=== PATIENT | female | born 1945 | race Caucasian/White ===

== ENCOUNTER 2022-03-30 22:38 | Emergency (ER) | payer MEDICARE, SELFPAY ==
--- NOTE | ~2022-03-30 | XR_ITS ---
XR chest 1V portable DATE: 03/30/2022 23:10 INDICATION: Weakness for 2 to 3 days TECHNIQUE: Portable AP chest on March 30, 2022 at 2309 hours COMPARISON: None FINDINGS: There are diffuse patchy bilateral pulmonary infiltrates which may be due to pneumonia or p ulmonary edema. Pulmonary interstitial fibrotic change is not excluded. Borderline heart size. Aortic calcification and unfolding. There is minimal if any pleural effusion. No pneumothorax. Osteopenia. IMPRESSION: Diffuse patchy bilateral pulmonary infiltrates; consider pneumonia, pulmonary edema. Unde rlying pulmonary interstitial fibrotic change is not excluded. Reviewed, dictated and finalized at location A. [facility] IMPRESSION: Diffuse patchy bilateral pulmonary infiltrates; consider pneumonia, pulmonary edema. Underlying pulmonary interstitial fibrotic change is not excl uded.
[2022-03-30 22:37] VITALS: BP 130/55; PULSE 58; RESP 13; TEMP 36.6; O2SAT 99
--- NOTE | 2022-03-30 22:44 | ECG_ITS ---
Measurements Intervals [place] Rate: 55 P: 5 ME: 152 QRS: 30 QRSD: 78 T: 69 QT: 429 QTc: 411 Interpretive Statements SINUS BRADYCARDIA WITH SINUS ARRHYTHMIA NO PREVIOUS ECG AVAILABLE FOR COMPARISON Electronically Signed On 03-31-2022 16:17:19 [employer] by Chiki Kong M.D.
[2022-03-30 23:22] LABS: Basophils Percent Auto 0.5 % (0.2-1.2); Eosinophils Absolute Auto 0.2 K/mm3 (0-0.3); Eosinophils Percent Auto 3.7 % (0-4.4); Hematocrit 28.7 % (37.0-47.0); Hemoglobin 9.3 g/dL (12.0-15.0); Immature Granulocyte Absolute 0.06 K/mm3 (0.00-0.031); Lymphocytes Percent Auto 35.4 % (18.3-44.2); Mean Corpuscular HGB Conc 32.4 g/dl (32-36); Mean Corpuscular Volume 89.4 fl (80-100); Mean Platelet Volume 10.4 fl (7.4-10.4); Monocytes Absolute Auto 0.8 K/mm3 (0.1-0.6); Monocytes Percent Auto 12.1 % (2.6-8.5); Neutrophils Absolute Auto 2.9 K/mm3 (1.3-6.7); Neutrophils Percent Auto 47.3 % (45.5-73.1); Platelet Count Result 272 k/mm3 (150-375); Red Blood Count 3.21 M/mm3 (4.2-5.4); Red Cell Distribution Width 15.4 % (11.5-14.5); White Blood Count 6.2 K/mm3 (4.5-10.0)
[2022-03-30 23:30] LABS: Appearance Urine Clear (Clear); Bilirubin Urine Negative (Negative); Blood Urine Trace-lysed (Negative); Color Urine Light Yellow (Yellow); Glucose Urine UA Negative (Negative); Ketones Urine Negative (Negative); Leukocyte Esterase Ur 2+ LEU/UL (Negative); Nitrate Urine Positive (Negative); Protein Urine Negative (Negative); Urobilinogen Urine 0.2 mg/dL (<2.0); pH Urine 7.5 (5.0-9.0)
[2022-03-30 23:32] LABS: INR 1.3; Prothrombin Time 15.5 Seconds (11.1-14.7)
[2022-03-30 23:33] LABS: Alanine Aminotransferase 33 U/L (6-35); Alkaline Phosphatase 103 U/L (38-126); Anion Gap 2 mmol/L (8-16); Aspartate Amino Transferase 24 U/L (14-36); Bilirubin,Total 0.6 mg/dL (0.2-1.3); Blood Urea Nitrogen 21 mg/dL (7-17); Calcium 9.3 mg/dL (8.4-10.2); Carbon Dioxide 29 mmol/L (22-30); Chloride 99 mmol/L (98-107); Estimated CRCL calculation 29 ml/min; Estimated Glomerular Filt Rate 37; Glucose 100 mg/dL (65-110); Magnesium 1.7 mg/dL (1.6-2.3); Partial Thromboplastin Time 28.8 SECONDS (22.3-36.8); Potassium 4.3 mmol/L (3.4-5.0); Sodium 130 mmol/L (137-145)
[2022-03-30 23:34] LABS: Lactic Acid Reflex 0.7 mmol/L (0.7-2.0); RBC Urine 0-2 /hpf (0-2); WBC Urine >75 /hpf
[2022-03-30 23:36] LABS: Add Urine Microscopic? YES
[2022-03-30 23:45] LABS: Troponin I < 0.012 ng/mL (0.000-0.034)
[2022-03-30 23:57] LABS: Influenza A QL RT-PCR Negative (Negative); Influenza B QL RT-PCR Negative (Negative); SARS-CoV-2 RNA PCR Negative
[2022-03-31 00:02] LABS: Procalcitonin 0.1 ng/mL
--- NOTE | 2022-03-31 01:28 | ED.GENADULT ---
HPI - General Adult General Chief complaint: Altered Mental Status Stated complaint: AMS, LETHARGIC Time Seen by Provider: 03/30/22 22:52 History of Present Illness HPI narrative: Patient is a 76-year-old female who presents emerged from with chief complaint of decreased responsiveness. assisted and noticed the patient was less responsive than normal and the family was concerned that she may have a UTI. They report no fevers and report that on the way to the emergency department the patient was able to answer questions and acting her baseline. Review of Systems Review of Systems: A 10 system review of systems was completed on the patient and is negative except for what is stated in the HPI. Nursing and ancillary documentation was reviewed. Exam Narrative: GENERAL: Well-appearing, well-nourished, and in no acute distress. HEAD: Normocephalic, atraumatic. EYES: PERRLA and EOMI. ENT: Nares clear, no rhinorrhea or epistaxis. Mucous membranes moist. NECK: Supple. CHEST: Clear to auscultation. No respiratory distress. HEART: Regular rate and rhythm. No murmur heard. Normal peripheral pulses. ABDOMEN: Soft, nontender, nondistended, normal active bowel sounds. EXTREMITIES: Normal range of motion. No edema. SKIN: Warm, dry, no rash. NEURO: No focal deficits. Alert and oriented x3. PSYCH: Normal mood and affect. Course Course Emergency Course: Patient is awake alert and acting at her baseline per family that is visiting with her. Patient's labs were just concerning for a an acute UTI the patient will be started on oral antibiotics the patient will be started on cefdinir for broad-spectrum coverage for the urinary infection. Patient was negative for COVID and influenza Chest x-ray showed evidence of atelectasis in the left base. Vital Signs Vital signs: Vital Signs Temperature 36.6 C 03/30/22 22:37 Pulse Rate 58 L 03/30/22 22:37 Respiratory Rate 13 03/30/22 22:37 Blood Pressure 130/55 L 03/30/22 22:37 Pulse Oximetry 99 03/30/22 22:37 Oxygen Delivery Nasal Cannula 03/30/22 22:37 Oxygen Flow Rate 2 03/30/22 22:37 Temperature 36.6 C 03/30/22 22:37 Pulse Rate 58 L 03/30/22 22:37 Respiratory Rate 13 03/30/22 22:37 Blood Pressure 130/55 L 03/30/22 22:37 Pulse Oximetry 99 03/30/22 22:37 Oxygen Delivery Nasal Cannula 03/30/22 22:37 Oxygen Flow Rate 2 03/30/22 22:37 Medical Decision Making Vital Signs Vital Signs: Vital Signs Temperature 36.6 C 03/30/22 22:37 Pulse Rate 58 L 03/30/22 22:37 Respiratory Rate 13 03/30/22 22:37 Blood Pressure 130/55 L 03/30/22 22:37 Pulse Oximetry 99 03/30/22 22:37 Oxygen Delivery Nasal Cannula 03/30/22 22:37 Oxygen Flow Rate 2 03/30/22 22:37 Temperature 36.6 C 03/30/22 22:37 Pulse Rate 58 L 03/30/22 22:37 Respiratory Rate 13 03/30/22 22:37 Blood Pressure 130/55 L 03/30/22 22:37 Pulse Oximetry 99 03/30/22 22:37 Oxygen Delivery Nasal Cannula 03/30/22 22:37 Oxygen Flow Rate 2 03/30/22 22:37 Lab Data 03/30/22 23:14 03/30/22 23:14 Labs: Lab Results 03/30/22 03/30/22 03/30/22 Range/Units 23:14 23:14 23:14 WBC 6.2 (4.5-10.0) K/mm3 RBC 3.21 L (4.2-5.4) M/mm3 Hgb 9.3 L (12.0-15.0) g/dL Hct 28.7 L (37.0-47.0) % MCV 89.4 (80-100) fl MCH 29.0 (26-34) pg MCHC 32.4 (32-36) g/dl RDW 15.4 H (11.5-14.5) % Plt Count 272 (150-375) k/mm3 MPV 10.4 (7.4-10.4) fl Immature Gran % (Auto) 1.0 H (0-0.5) % Neut % (Auto) 47.3 (45.5-73.1) % Lymph % (Auto) 35.4 (18.3-44.2) % [place] % (Auto) 12.1 H (2.6-8.5) % Eos % (Auto) 3.7 (0-4.4) % Baso % (Auto) 0.5 (0.2-1.2) % Lymph # (Auto) 2.20 (0.9-3.2) K/mm3 [place] # (Auto) 0.8 H (0.1-0.6) K/mm3 Eos # (Auto) 0.2 (0-0.3) K/mm3 Baso # (Auto) 0.0 (0.0-0.1) K/mm3 Abs Immat Gran (auto) 0.06 H (0.00-0.031) K/mm3 Absolute Neuts (auto) 2.9 (1.
[2022-03-31] MEDS: CEFDINIR 300 MG CAPSULE PO (03:25)
[2022-03-31 06:00] VITALS: BP 154/60; PULSE 64; RESP 16; O2SAT 98
== END 2022-03-31 06:01 ==
PROVIDERS: Emergency Provider Emergency Medicine; PCP Family Medicine
DX: N39.0 Urinary tract infection, site not specified (principal); Z20.822 Contact with and (suspected) exposure to COVID-19; R00.1 Bradycardia, unspecified
CPT/HCPCS: 36415; 71045; 80053; 81001; 83605; 83735; 84145; 84484; 85025; 85610; 85730; 87086; 87088; 87636; 93005; 99284; A9270